=== PATIENT | female | born 1995 | race Two or more races ===

== ENCOUNTER 2018-11-26 20:56 | Emergency (ER) | payer SELFPAY ==
[~2018-11-26] VITALS: Ht 165.1 cm; Wt 55.3 kg
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
[2018-11-26] MEDS ORDERED: LIDOCAINE 1%-EPI 1:100,000 20 ML VIAL ONE (21:05)
--- NOTE | 2018-11-26 21:05 | NUR ---
HOWIE Richey at bedside for Eval.
--- NOTE | 2018-11-26 21:08 | NUR ---
HOWIE Richey at bedside for cleaning and suture of the laceration.
[2018-11-26] MEDS ORDERED: ACETAMINOPHEN ES 500 MG TABLET ONE (21:58)
[2018-11-26] MEDS ORDERED: ACETAMINOPHEN 325 MG TABLET PO ONE (22:00)
[2018-11-26] MEDS ORDERED: TDAP [DIPH/PERTUSSIS/TET] 0.5 ML VIAL IM ONE ×2 (22:09→22:30)
--- NOTE | 2018-11-26 22:29 | NUR ---
[facility] at bedside.
[2018-11-26] MEDS ORDERED: LIDOCAINE 1%-EPI 1:100,000 20 ML VIAL TP ONE (22:30)
[2018-11-26 22:40] VITALS: BP 138/88
--- NOTE | 2018-11-26 22:40 | NUR ---
Patient discharged to home in stable condition. Written and verbal after care instructions given. Patient verbalizes understanding of instruction. Pt ambulatory with steady gait.
== END 2018-11-26 22:41 | disposition home or self-care (01) ==
LOC: ER 20:59 → EDBD 20:59 → ER 22:41
DX: S01.81XA Laceration without foreign body of other part of head, initial encounter (principal); V49.59XA Passenger injured in collision with other motor vehicles in traffic accident, initial encounter; Y93.89 Activity, other specified; Y92.410 Unspecified street and highway as the place of occurrence of the external cause; Y99.8 Other external cause status
CPT/HCPCS: 12011; 90471; 90715; 99283; A4606; A6402; J3490; Z7610